=== PATIENT | male | born 1980 | race Caucasian/White ===

== ENCOUNTER 2018-10-15 17:23 | Emergency (ER) | payer OTHER ==
[2018-10-15] MEDS: MORPHINE 4 MG/ML 1ML VIAL/SYRINGE (J2270) IV ×2 (18:12→18:41)
[2018-10-15] MEDS: ONDANSETRON 4MG/2ML VIAL (J2405) IV (18:41)
[2018-10-15] MEDS ORDERED: PROPOFOL 1,000 MG/100 ML VIAL As Ordered (20:07)
[2018-10-15] MEDS: PROPOFOL 200 MG/20 ML VIAL IV (20:30)
[2018-10-15] MEDS: NORCO 5/325MG TABLET (BULK FOR ED) PO (21:15)
[2018-10-15] MEDS ORDERED: traMADol 50 MG TAB PO (21:45)
[2018-10-15] MEDS: traMADol 50 MG TAB PO (21:46)
== END 2018-10-15 21:53 | disposition home or self-care (01) ==
LOC: M ED 17:23
DX: S52.532A Colles' fracture of left radius, initial encounter for closed fracture (principal); W00.9XXA Unspecified fall due to ice and snow, initial encounter; Y92.69 Other specified industrial and construction area as the place of occurrence of the external cause
CPT/HCPCS: J2270

== ENCOUNTER 2018-10-19 14:01 | Day surgery (SDC) | payer OTHER ==
[~2018-10-19 14:01] MED LIST: LIDOCAINE 2% INJ 100 MG/5 ML SDV (FOR ANES.) As Ordered; MIDAZOLAM INJ 2 MG/2 ML VIAL (J2250) As Ordered; ONDANSETRON 4MG/2ML VIAL (J2405) As Ordered; PROPOFOL 200 MG/20 ML VIAL As Ordered; ROCURONIUM BROMIDE 50 MG/5 ML VIAL As Ordered; dexameTHASONE 4 MG/ML 1ML VIAL (J1100) As Ordered; fentaNYL 100 MCG/2 ML INJECTION (J3010) As Ordered
[2018-10-19] MEDS ORDERED: LIDOCAINE 1% MDV 20ML VIAL (14:02)
[2018-10-19] MEDS ORDERED: dexameTHASONE 10 MG/1 ML VIAL PRES.FREE (J1100) (14:02)
[2018-10-19] MEDS ORDERED: ROPIvacaine 0.5% 30 ML INJECTION (J2795 PER 1MG) (14:02)
[2018-10-19] MEDS ORDERED: MEPIVACAINE HCL 1.5% 30 ML VIAL (J0670) (14:02)
[2018-10-19] MEDS ORDERED: fentaNYL 100 MCG/2 ML INJECTION (J3010) As Ordered (14:30)
[2018-10-19] MEDS ORDERED: MIDAZOLAM INJ 2 MG/2 ML VIAL (J2250) As Ordered (14:30)
[2018-10-19] MEDS: MIDAZOLAM INJ 2 MG/2 ML VIAL (J2250) IV (14:38)
[2018-10-19] MEDS: fentaNYL 100 MCG/2 ML INJECTION (J3010) IV (14:38)
[2018-10-19] MEDS: ceFAZolin 1GM INJ (J0690 PER 500MG) As Ordered (15:23)
[2018-10-19] MEDS: LABETALOL HCL 100 MG/20 ML VIAL IV ×3 (17:22→17:36)
[2018-10-19] MEDS ORDERED: LABETALOL HCL 100 MG/20 ML VIAL As Ordered (17:23)
[2018-10-19] MEDS ORDERED: MORPHINE 4 MG/ML 1ML VIAL/SYRINGE (J2270) IV (17:45)
[2018-10-19] MEDS ORDERED: fentaNYL 100 MCG/2 ML INJECTION (J3010) IV (17:45)
[2018-10-19] MEDS ORDERED: LR 1,000 ML IV ×2 (17:45)
[2018-10-19] MEDS ORDERED: PERCOCET 5MG/325MG TAB PO ×3 (17:45)
[2018-10-19] MEDS ORDERED: HYDROMORPHONE HCL 0.5 MG/ 0.5 ML SYRINGE (J1170 PER 1) IV (17:45)
[2018-10-19] MEDS ORDERED: ONDANSETRON 4MG/2ML VIAL (J2405) IV ×2 (17:45)
== END 2018-10-19 19:30 | disposition home or self-care (01) ==
LOC: M SDC 14:01
DX: S52.502A Unspecified fracture of the lower end of left radius, initial encounter for closed fracture (principal); W01.0XXA Fall on same level from slipping, tripping and stumbling without subsequent striking against object, initial encounter; Y92.89 Other specified places as the place of occurrence of the external cause; Y93.9 Activity, unspecified; Y99.0 Civilian activity done for income or pay; R06.83 Snoring; Z79.899 Other long term (current) drug therapy
CPT/HCPCS: 25607

== ENCOUNTER → 2018-11-26 | Outpatient (CLI) | payer OTHER ==
[~2018-11-26] MED LIST changes: +COLA100C5 PO; -LIDOCAINE 2% INJ 100 MG/5 ML SDV (FOR ANES.) As Ordered; -MIDAZOLAM INJ 2 MG/2 ML VIAL (J2250) As Ordered; +NORCOTAB PO; -ONDANSETRON 4MG/2ML VIAL (J2405) As Ordered; -PROPOFOL 200 MG/20 ML VIAL As Ordered; -ROCURONIUM BROMIDE 50 MG/5 ML VIAL As Ordered; +TRAM50TA2 PO; -dexameTHASONE 4 MG/ML 1ML VIAL (J1100) As Ordered; -fentaNYL 100 MCG/2 ML INJECTION (J3010) As Ordered
--- NOTE | 2018-12-19 16:50 | REP ---
Clinical: Status post fixation for comminuted distal radial fracture. Technique: Axial noncontrast images through the wrist including distal forearm with coronal and sagittal re-formations. Findings: The patient is status post fixation for comminuted intra-articular fracture involving the distal radial metadiaphysis. Orthopedic hardware appears to be in satisfactory position. The carpal bones appear intact. There is an unfused acute fracture of the ulnar styloid. Overlying postsurgical and post traumatic changes within the surrounding soft tissues noted. Impression: Status post fixation for comminuted distal radial fracture. Acute ulnar styloid fracture. Electronically Signed by Ishan Shaffer MD 12/19/2018 04:40 P
== END ==
LOC: M RAD 13:53
PROVIDERS: ATTEND Orthopaedic Surgery Sports Medicine
DX: S52.502D Unspecified fracture of the lower end of left radius, subsequent encounter for closed fracture with routine healing (principal); S52.612A Displaced fracture of left ulna styloid process, initial encounter for closed fracture; X58.XXXA Exposure to other specified factors, initial encounter; Y92.9 Unspecified place or not applicable

== ENCOUNTER 2019-04-08 11:15 | Outpatient (RCR) | payer OTHER ==
[~2019-04-08 11:15] MED LIST changes: +HYDR-3715 PO; -NORCOTAB PO
== END 2019-04-09 ==
LOC: M OT 11:15
PROVIDERS: ATTEND Orthopaedic Surgery Sports Medicine
DX: S52.502D Unspecified fracture of the lower end of left radius, subsequent encounter for closed fracture with routine healing (principal); X58.XXXD Exposure to other specified factors, subsequent encounter

== ENCOUNTER 2019-05-06 13:37 | Outpatient (RCR) | payer OTHER | END 2019-05-09 | LOC: M OT 13:37 | PROVIDERS: ATTEND Orthopaedic Surgery Sports Medicine | DX: S52.502D Unspecified fracture of the lower end of left radius, subsequent encounter for closed fracture with routine healing (principal); X58.XXXD Exposure to other specified factors, subsequent encounter ==

== ENCOUNTER 2019-06-03 12:58 | Outpatient (RCR) | payer OTHER | END 2019-06-09 | LOC: M OT 12:58 | PROVIDERS: ATTEND Orthopaedic Surgery Sports Medicine | DX: S52.502D Unspecified fracture of the lower end of left radius, subsequent encounter for closed fracture with routine healing (principal); M25.532 Pain in left wrist ==

== ENCOUNTER 2019-08-06 13:00 | Outpatient (RCR) | payer OTHER | END 2019-08-09 | LOC: M OT 13:00 | PROVIDERS: ATTEND Nurse Practitioner Adult Health | DX: T84.84XD Pain due to internal orthopedic prosthetic devices, implants and grafts, subsequent encounter (principal) ==

== ENCOUNTER 2019-08-31 08:54 | Outpatient (RCR) | payer OTHER | END 2019-09-09 | LOC: M OT 08:54 | PROVIDERS: ATTEND Nurse Practitioner Adult Health | DX: M25.532 Pain in left wrist (principal); T84.84XA Pain due to internal orthopedic prosthetic devices, implants and grafts, initial encounter ==

== ENCOUNTER → 2025-03-08 | Outpatient (CLI) | payer BC | LOC: M RAD 08:20 | PROVIDERS: ATTEND Internal Medicine | DX: N28.1 Cyst of kidney, acquired (principal); N28.89 Other specified disorders of kidney and ureter ==

== ENCOUNTER → 2025-10-27 | Outpatient (CLI) | payer BC | LOC: M RAD 08:05 | PROVIDERS: ATTEND Internal Medicine | DX: R93.421 Abnormal radiologic findings on diagnostic imaging of right kidney (principal) ==